=== PATIENT | female | born 1995 | race Caucasian/White ===

== ENCOUNTER 2020-10-11 16:36 | Emergency (ER) | payer OTHER, BC ==
[~2020-10-11] VITALS: Ht 160 cm; Wt 75.8 kg
[2020-10-11] MEDS ORDERED: FLEXERIL PO (17:17)
[2020-10-11] MEDS ORDERED: HYDROCODON-ACE1 EAC7 PO (17:17)
[2020-10-11 17:26] VITALS: BP 117/83
== END 2020-10-11 17:27 | disposition home or self-care (01) ==
LOC: M.ERS 16:36
DX: S39.012A Strain of muscle, fascia and tendon of lower back, initial encounter (principal); J45.909 Unspecified asthma, uncomplicated; V89.2XXA Person injured in unspecified motor-vehicle accident, traffic, initial encounter; Y93.89 Activity, other specified; Y92.89 Other specified places as the place of occurrence of the external cause; Y99.8 Other external cause status